=== PATIENT | female | born 1970 | race Caucasian/White ===

== ENCOUNTER 2016-08-08 15:51 | Emergency (ER) | payer OTHER ==
--- NOTE | ~2016-08-08 | CR93 ---
[facility] A Service of [facility] RADIOLOGY TEXT RESULTS PATIENT: THU BERGER LOCATION: CFTX : 74 UNIT #: [id number] AGE: [address]: Benita Cunningham APRN SEX: F ORDER DR: [id number] [facility] [address] [place], [place] [address] [id number] E MR#: [id number] Acc #: [id number] NAME: THU BERGER : 1970 SEX: F STUDY DATE/TIME: 08/08/2016 16:19 UNIT: [facility] ROOM: STUDY DESCRIPTION: CR Elbow Min 3 Views Lt Attending Physician: Benita Cunningham A.P.R.N. Ordering Physician: Ed Anselmo Rice M.D. Primary Care Physician: Ro Melchor M.D. MEDICAL IMAGING REPORT This report is preliminary unless electronic signature is present EXAM Left elbow, 3 views HISTORY Elbow pain after fall playing basketball today. FINDINGS Three views of the left elbow demonstrate a probable subtle nondisplaced fracture along the anterior margin of the radial head, seen only on 1 view. Elbow effusion with elevation of the anterior and posterior fat pads. Bone alignment is normal. No joint space narrowing or dislocation. Dictated by... Luiz Francois M.D. THIS IS AN ELECTRONICALLY VERIFIED REPORT Luiz Francois M.D. at 08/08/2016 10:39 PM DFL/psc TD: 08/08/2016 20:27 JOB #: [id number] MEDICAL IMAGING REPORT Page 1 of 1 COPY
--- NOTE | ~2016-08-08 | CR132 ---
[facility] A Service of [facility] & [facility] RADIOLOGY TEXT RESULTS PATIENT: THU BERGER LOCATION: CFTX : 74 UNIT #: [id number] AGE: [address]: Benita Cunningham APRN SEX: F ORDER DR: [id number] [facility] [address] [place], [place] [address] [id number] E MR#: [id number] Acc #: [id number] NAME: THU BERGER : 1970 SEX: F STUDY DATE/TIME: 08/08/2016 16:20 UNIT: [facility] ROOM: STUDY DESCRIPTION: CR Forearm 2 View Lt Attending Physician: Benita Cunningham A.P.R.N. Referring Physician: Angel Cooper M.D. Ordering Physician: Ed Anselmo Rice M.D. Primary Care Physician: Ro Melchor M.D. MEDICAL IMAGING REPORT This report is preliminary unless electronic signature is present EXAM Left forearm, 2 views. HISTORY Arm pain after fall playing basketball today. FINDINGS Two views of the left forearm demonstrate normal bone alignment. Questionable subtle nondisplaced fracture of the lateral margin of the radial head seen on one view probably corresponds to a similar subtle finding on elbow x-ray reported separately. No joint space narrowing. Small elbow effusion. IMPRESSION 1. Questionable subtle nondisplaced fracture of the lateral margin of the radial head. 2. Small elbow effusion. 3. Remainder of the forearm is negative. Dictated by... Luiz Francois M.D. THIS IS AN ELECTRONICALLY VERIFIED REPORT Luiz Francois M.D. at 08/08/2016 10:39 PM MAYCOL/lizet TD: 08/08/2016 20:36 JOB #: [id number] MEDICAL IMAGING REPORT Page 1 of 1 COPY
[~2016-08-08 15:51] MED LIST: CHANTIX1 MG PO; COLESTID PO; DEXILANT60 MG PO; ESCITALOPRAM OX10 MG PO; KETOPROFEN PO; PHENERGAN25 M1 DOB; VITAMIN D50000 UNIT PO
== END 2016-08-08 17:20 | disposition home or self-care (01) ==
LOC: CFTX 15:51 → CED 15:51 → CFTX 16:22
DX: S52.125A Nondisplaced fracture of head of left radius, initial encounter for closed fracture (principal); F32.9 Major depressive disorder, single episode, unspecified; F17.210 Nicotine dependence, cigarettes, uncomplicated; W22.8XXA Striking against or struck by other objects, initial encounter; Z23 Encounter for immunization; Z88.5 Allergy status to narcotic agent; Z79.899 Other long term (current) drug therapy
CPT/HCPCS: 29105; 73080; 73090; 90471; 90715; 99284